=== PATIENT | female | born 1995 | race Two or more races ===

== ENCOUNTER 2025-05-15 21:01 | Emergency (ER) | payer MEDICAID, OTHER ==
[~2025-05-15] VITALS: Ht 162.6 cm; Wt 118.3 kg
--- NOTE | 2025-05-15 21:38 | ED.PDOC ---
MANAGER ENGLISH HPI Comments 29 y/o F presents for sudden and unprovoked onset of abnormal vaginal bleeding, with clot production and associated 6/10 lower abdominal cramping and back pain. Patient is 11x weeks with her first ([id number]). Symptoms are reported to have started 1.5 hours ago at around 1950, this evening. Patient reports, already, going through 2x pads. Clots are small in size. No recent injuries endorsed. She has established outpatient MANAGER ENGLISH care and last ultrasound showed normal on 05/12/25. Only significant history of endometriosis s/p surgical intervention in July 2024. Patient denies any nausea, vomiting, urinary symptoms, lightheadedness, or further associated symptoms. Chief Complaint: Vaginal Bleed Time Seen by MD: 21:20 Information Source: Patient Mode of Arrival: Ambulatory Timing: Hours Review of Systems: REVIEW OF SYSTEMS: No fever, no chills, or fatigue HEENT: No sore throat, no earache, no congestion, no neck pain. Cardiac: No chest pain. No palpitations. Lungs: No shortness of breath, no cough. GI: Lower abdominal pain. No nausea, no vomiting, no diarrhea, no constipation. : Abnormal vaginal bleeding. No dysuria, frequency, or urgency. No hematuria. Musculoskeletal: Low back pain. No joint pain , no joint swelling, no extremity edema. Skin: No rash, no itching. Neuro: No headache, no dizziness, no weakness Vital Signs Vital Signs Date Time Temp Pulse Resp B/P (MAP) Pulse Ox O2 Delivery O2 Flow Rate FiO2 05/15/25 23:14 98.4 67 16 103/43 (63) 100 98.4 Physical Exam General: Awake, alert and oriented. No acute distress. Skin: Skin in warm, dry and intact. Appropriate color for ethnicity. HEENT: The head is normocephalic and atraumatic. Conjunctivae are clear without exudates or hemorrhage. Sclera is non-icteric. EOM are intact. No signs of nystagmus. Eyelids are normal in appearance without swelling or lesions. Oral mucosa is pink and moist Neck: The neck is supple with normal range of motion. No JVD. Cardiac: Heart rate and rhythm are normal. No murmurs, gallops, or rubs are auscultated. Respiratory: No signs of respiratory distress. Lung sounds are clear in all lobes bilaterally without rales, rhonchi, or wheezes. Abdominal: Suprapubic tenderness. No CVA tenderness. Otherwise, remaining a bdomen is soft, non-tender without distention, guarding or rigidity. Bowel sounds are present and normoactive in all four quadrants. Extremities: Upper and lower extremities are atraumatic in appearance without deformity or edema. Neurological: The patient is awake, alert and oriented to person, place, and time with normal speech. Speech is clear. There is no facial asymmetry. Psychiatric: Appropriate mood and affect. Good judgement and insight. 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 Was a procedure done?: No Differential Diagnosis (SHIRT TRIMMER) Vaginal Bleeding: - Complete, - Incomplete, - Inevitable, - Missed, - Threatened, Abruptio Placentae, Blood Loss Anemia, Placenta Previa, UTI X-Ray, Labs, Meds, VS Vital Signs Date Time Temp Pulse Resp B/P (MAP) Pulse Ox O2 Delivery O2 Flow Rate FiO2 05/15/25 23:14 98.4 67 16 103/43 (63) 100 98.4 05/15/25 21:20 97.9 85 18 103/66 (78) 99 97.9 Lab Test 05/15/25 22:55 05/15/25 21:53 Range/Units Beta HCG, Quantitative 32528.3 H 1.5-4.2 mIU/mL Urine Color Colorless Yellow Urine Clarity Turbid H Clear Urine pH 5.5 5.0-9.0 Urine Specific [place] 1.018 1.001-1.035 Urine Protein Trace H Negative Urine Ketones Trace Negative Urine Blood 3+ H Negative /uL Urine Nitrite Negative Negative Urine Bilirubin Negative Negative Urine Urobilinogen Normal Negative mg/dL Urine Leukocyte Esterase 2+ Negative /uL Urine RBC 3055 0 - 4 /hpf Urine Microscopic WBC 11 H 0-5 /HPF Urine Squamous Epithelial Cells Many <5 /hpf Urine Bacteria None seen None Seen /hpf Urine Mucus Few None Seen Urine Glucose Normal Normal mg/dL Urine Test Positive Negative Time of 1ST Reevaluation: 21:50 Reevaluation 1ST: Unchanged Patient Education/Counseling: Need For Follow Up Family Education/Counseling: No Family Present Departure 1 Departure Time of Disposition: 00:11 Impression: Primary Impression: Vaginal bleeding during Additional Impressions: Threatened miscarriage Urinary tract infection during Disposition: 01 HOME / SELF CARE / HOMELESS Condition: Stable Additional Instructions: ED DISCHARGE INSTRUCTIONS Instructions: Please read all instructions provided in this packet carefully. Although you have been discharged from the Emergency Department, this does not mean that you have a "clean bill of health". No definitive diagnosis for your symptoms has been made today. It is possible that you are in the process of developing a serious illness. This is why you must return to the ED without fail if any new or worsening symptoms (especially if your symptoms include chest pain, trouble breathing, abdominal pain, fever, headache, confusion, trouble seeing, or trouble walking) It is also very important that your rolfer within the next 1-3 days to follow up. If you are unable to get an appointment, you continued to have heavy vaginal bleeding and pelvic pain within the next 24 hours return to the ED for re- evaluation. A copy of your ultrasound report is included below Threatened Miscarriage: Care Instructions Overview Some women have light spotting or bleeding during the first 12 weeks of . In some cases this is normal. Light spotting or bleeding can also be a sign of a possible loss of the . This is called a threatened miscarriage. At this point, the doctor may not be able to tell if your vaginal bleeding is normal or is a sign of a miscarriage. In early , things such as stress, exercise, and sex do not cause misca rriage. You may be worried or upset about the possibility of losing your . But do not blame yourself. There is no treatment to stop a miscarriage. If you do have a miscarriage, there was nothing you could have done to prevent it. A miscarriage usually means that the is not developing normally. Follow-up care is a stovall part of your treatment and safety. Be sure to make and go to all appointments, and call your doctor if you are having problems. It's also a good idea to know your test results and keep a list of the medicines you take. How can you care for yourself at home? Take acetaminophen (Tylenol) for cramps. Read and follow all instructions on the label. Do not take two or more pain medicines at the same time unless the doctor told you to. Many pain medicines have acetaminophen, which is Tylenol. Too much acetaminophen (Tylenol) can be harmful. Do not have sex until your doctor says it is okay. Get lots of rest over the next several days. You may do your normal activities if you feel well enough to do them. But do not do any heavy exercise until your doctor says it is okay. Eat a balanced diet that is high in iron and vitamin C. Foods rich in iron include red meat, shellfish, eggs, beans, and leafy green vegetables. Foods high in vitamin C include citrus fruits, tomatoes, and broccoli. Talk to your doctor about whether you need to take iron pills or a multivitamin. Do not drink alcohol or use tobacco or illegal drugs. Do not smoke. If you need help quitting, talk to your doctor about stop-smoking programs and medicines. These can increase your chances of quitting for good. When should you call for help? Call 911 anytime you think you may need emergency care. For example, call if: You passed out (lost consciousness). You feel you cannot stop from hurting yourself or someone else. Where to get help 24 hours a day, 7 days a week If you or someone you know talks about suicide, self-harm, a mental health crisis, a substance use crisis, or any other kind of emotional distress, get help right away. You can: Call the Suicide and Crisis Lifeline at 988. Call 8-543-262-TALK ( ). Text HOME to 062711 to access the Crisis Text Line. Consider saving these numbers in your phone. Go to [facility] for more information or to chat online. Call your doctor now or seek immediate medical care if: You have severe vaginal bleeding. You are dizzy or lightheaded, or you feel like you may faint. You have new or worse pain in your belly or pelvis. You have a fever. You have vaginal discharge that smells bad. Watch closely for changes in your health, and be sure to contact your doctor if: You do not get better as expected. Credits for Threatened Miscarriage: Care Instructions Current as of: March 23, 2024 Author: [employer] Staff Clinical Review Board All [employer] education is reviewed by a team that includes physicians, nurses, advanced practitioners, registered dieticians, and other healthcare professionals. FIRST TRIMESTER OBSTETRICAL ULTRASOUND HISTORY: Vaginal bleeding, 11 weeks . [place] 11/30/2025. Gestational age by [place]RAEL 11 weeks 4 days. COMPARISON: No prior study is available for comparison. TECHNIQUE: Transabdominal imaging of the pelvis. FINDINGS: BIOMETRY: MSD: 5.25 cm, corresponding to 11 weeks 1 days CRL: 4.75 cm, corresponding to 11 weeks 4 days Yolk sac: Identified. Sonographic age: 11 weeks 4 days, corresponding to an [place] of 11/30/2025 Clinical age: 11 weeks 4 days, corresponding to an [place] of 11/30/2025 HEART RATE: 159 bpm UTERUS: The uterus measures 11.3 x 7.4 x 9.2 cm. CERVIX: Not well visualized. ADNEXA: The right ovary is not seen. The left ovary measures approximately 2.9 x 2.2 x 2.3 cm. There is expected flow within the left ovary. OTHER: No free fluid is identified in the cul-de-sac. IMPRESSION: Single live intrauterine gestation with a crown-rump length consistent with a gestational age of 11 weeks and 4 days. No intrauterine abnormality is identified on this transabdominal study. ATED BY: JOEY ABDUL MD DICTATED DATE/TIME: 05/15/25 4124 e-Prescriptions Cephalexin (KEFLEX CAPSULE) 250 Mg Cp 500 MG PO BID for 7 Days, #14 CAP Prov: MELVIN DALAL MD 05/16/25 Comments Patient is felt stable for discharge home to follow up with the primary care provider or rolfer. Critical Care Note Critical Care Time?: No Stability Stability form required: No Heart Score Heart Score: Heart Score Response (Comments) Value History N/A 0 EKG N/A 0 Age N/A 0 Risk Factors N/A 0 Troponin N/A 0 Total 0 I personally scribed for MELVIN DALAL MD ([email or web address]) on 05/15/25 at 21:38. Electronically submitted by Kendell Blanchard ([email or web address]). MELVIN DALAL MD May 15, 2025 21:38
[2025-05-15 21:54] LABS: Urine Bacteria None Seen /hpf (None Seen)
[2025-05-15 22:06] LABS: Urine Blood 3+ /uL (Negative); Urine Clarity Turbid (Clear); Urine Color Colorless (Yellow); Urine Mucus FEW (None Seen); Urine Protein, UAD TRACE (Negative); Urine Specific Gravity 1.018 (1.001-1.035); Urine Squamous Epithelial Cell MANY /hpf (<5); Urine Urobilinogen Normal (Negative); Urine WBC 11 /HPF (0-5); Urine pH 5.5 (5.0-9.0)
[2025-05-15 23:14] VITALS: BP 103/43; PULSE 67; RESP 16; TEMP 98.4; O2SAT 100
--- NOTE | 2025-05-15 23:46 | DVH ---
FIRST TRIMESTER OBSTETRICAL ULTRASOUND HISTORY: Vaginal bleeding, 11 weeks . IS[place] 11/30/2025. Gestational age by ISRAEL 11 weeks 4 days . COMPARISON: No prior study is available for comparison. TECHNIQUE: Transabdominal imaging of the pelvis. FINDINGS: BIOMETRY: MSD: 5.25 cm, corresponding to 11 weeks 1 days CRL: 4.75 cm, corresponding to 11 weeks 4 days Yolk sac: Identified. Sonographic age: 11 weeks 4 days, corresponding to an [place] of 11/30/2025 Clinical age: 11 weeks 4 days, corresponding to an [place] of 11/30/2025 HEART RATE: 159 bpm UTERUS: The uterus measures 11.3 x 7.4 x 9.2 cm. CERVIX: Not well visualized. ADNEXA: The right ovary is not seen. The left ovary measures approximately 2.9 x 2.2 x 2.3 cm. There is expected flow within the left ovary. OTHER: No free fluid is identified in the cul-de-sac. IMPRESSION: Single live intrauterine gestation with a crown-rump length consistent with a gestational age of 11 w eeks and 4 days. No intrauterine abnormality is identified on this transabdominal study.
[2025-05-16] MEDS ORDERED: CEPH250C PO (00:18)
== END 2025-05-16 00:33 | disposition home or self-care (01) ==
LOC: ER 21:01
DX: O20.0 Threatened abortion (principal); O23.41 Unspecified infection of urinary tract in pregnancy, first trimester; N39.0 Urinary tract infection, site not specified; Z3A.11 11 weeks gestation of pregnancy
CPT/HCPCS: 36415; 76801; 81001; 81025; 84702

== ENCOUNTER 2025-07-03 19:56 | Emergency (ER) | payer MEDICAID ==
[~2025-07-03] VITALS: Ht 162.6 cm; Wt 121.8 kg
[~2025-07-03 19:56] MED LIST: CEPH250C PO
--- NOTE | 2025-07-03 20:16 | ECG ---
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
[2025-07-03] MEDS: ALBUTEROL SULF 2.5 MG/0.5ML(0.5%) NEB SOLN NEB ONE (21:16)
[2025-07-03 21:17] LABS: Hematocrit 37.0 % (36.0-46.0); Hemoglobin 12.4 g/dL (12.2-16.2); Mean Corpuscular Hemoglobin 26.4 pg (28.0-32.0); Mean Corpuscular Volume 78.7 fL (80.0-100.0); Nucleated Red Blood Cells % 0.1 %
[2025-07-03 21:18] LABS: Potassium 3.8 mmol/L (3.5-5.1); Sodium 139 mmol/L (136-145)
[2025-07-03 21:19] LABS: Anion Gap 10 (5-15); Carbon Dioxide 20 mmol/L (20-31)
[2025-07-03 21:20] LABS: Calcium 9.2 mg/dL (8.7-10.4)
[2025-07-03 21:22] LABS: Chloride 109 mmol/L (98-107)
[2025-07-03 21:24] LABS: BUN/Creatinine Ratio 11.5 (10.0-20.0); Glucose 104 mg/dL (74-106)
[2025-07-03 21:25] LABS: Blood Urea Nitrogen 7 mg/dL (9-23)
--- NOTE | 2025-07-03 21:35 | DVH ---
LIMITED OB ULTRASOUND > 14 WKS: HISTORY: Pelvic pain while TECHNIQUE: Multiple real-time grayscale images of the gravid uterus with duplex Doppler color flow an d M-mode spectral analysis. FINDINGS: Live intrauterine with fetus in breech position. Gestational age of 18 weeks and 4 days acc ording to BPD, HC, [place], and [place]. [place] of 11/30/2025. Heart rate of 139 beats per minute. MVP of 5 cm. Es timated weight of 244 g. Placenta is posterior. Cervical length is 3.4 cm and is closed. No placenta previa or abruption is n oted. IMPRESSION: 1. Limited evaluation due to body habitus. 2. IUP single live fetus at 18 weeks and 4 days with IS[place] of 11/30/2025. 3. No placenta previa or abruption is noted.
--- NOTE | 2025-07-04 01:04 | ED.PDOC ---
History of Present Illness HPI Comments 29-year-old female who presents for chief complaint of chest pain and generalized tremors. Significant history of asthma. She is 18 weeks . Patient endorses on onset of symptoms at around 1830, this evening, after getting into a verbal altercation with her , experiencing an asthma exacerbation, and passing out. Denies any head trauma. Established care. Denies any shortness of breath, dizziness, lightheadedness, or further associated symptoms at this time. REVIEW OF SYSTEMS: General: No fever, no chills, or fatigue HEENT: No sore throat, no earache, no congestion, no neck pain. Cardiac: chest pain. No palpitations. Lungs: No shortness of breath, no cough. GI: No nausea, no vomiting, no diarrhea, no constipation, no abdominal pain : No dysuria, frequency, or urgency. No hematuria. Musculoskeletal: No joint pain , no joint swelling, no extremity edema. Skin: No rash, no itching. Neuro: Tremors. No headache, no dizziness, no weakness PHYSICAL EXAM: General: Awake, alert and oriented. No acute distress. Skin: Skin in warm, dry and intact. Appropriate color for ethnicity. HEENT: The head is normocephalic and atraumatic. Conjunctivae are clear without exudates or hemorrhage. Sclera is non-icteric. EOM are intact. No signs of nystagmus. Eyelids are normal in appearance without swelling or lesions. Oral mucosa is pink and moist Neck: The neck is supple with normal range of motion. No JVD. Cardiac: Heart rate and rhythm are normal. No murmurs, gallops, or rubs are auscultated. Respiratory: No signs of respiratory distress. Lung sounds are clear in all lobes bilaterally without rales, rhonchi, or wheezes. Abdominal: abdomen. Abdomen is soft, non-tender without distention, guarding or rigidity. Bowel sounds are present and normoactive in all four quadrants. Extremities: Upper and lower extremities are atraumatic in appearance without deformity or edema. Neurological: The patient is awake, alert and oriented to person, place, and time with normal speech. Speech is clear. There is no facial asymmetry. Psychiatric: Appropriate mood and affect. Good judgement and insight. 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 Was a procedure done?: No EKG EKG : Pulse Rate (adult): 89 [place]: Normal Cardiac Rhythm: NSR Block: None Hypertrophy: None ST: Normal Comments No STEMI Differential Dx Considerations may include: Differential diagnoses considered includebut arenot limited to acute Bronchitis, Asthma, COPD, Pneumothorax, PE, CHF, Pulmonary HTN, Anemia, CO Poisoning, Methemoglobinemia, Hyperventilation, Metabolic Acidosis, Pulmonary Edema, Pneumonia, ACS, Pericardial Tamponade, Anxiety, other X-Ray, Labs, Meds, VS Vital Signs Date Time Temp Pulse Resp B/P (MAP) Pulse Ox O2 Delivery O2 Flow Rate FiO2 07/04/25 03:23 89 07/04/25 01:06 97.8 83 14 105/59 (74) 97 97.8 07/03/25 21:18 98 Room Air* 0 21 07/03/25 21:18 16 98 Room Air* 0 21 07/03/25 20:14 98.2 90 16 120/66 97 98.2 07/03/25 20:01 89 Lab Test 07/04/25 00:17 07/03/25 20:14 Range/Units Troponin I High Sensitivity < 3 L < 3 L </=34 ng/L White Blood Count 8.6 4.4-10.8 10^3/uL Red Blood Count 4.70 4.0-5.20 10^6/uL Hemoglobin 12.4 12.2-16.2 g/dL Hematocrit 37.0 36.0-46.0 % Mean Corpuscular Volume 78.7 L 80.0-100.0 fL Mean Corpuscular Hemoglobin 26.4 L 28.0-32.0 pg Mean Corpuscular Hemoglobin Concent 33.5 32.0-36.0 g/dL Red Cell Distribution Width 14.8 H 11.8-14.3 % Platelet Count 195 140-450 10^3/uL Mean Platelet Volume 10.2 6.9-10.8 fL Neutrophils (%) (Auto) 74.5 37.0-80.0 % Lymphocytes (%) (Auto) 17.9 10.0-50.0 % Monocytes (%) (Auto) 6.1 0.0-12.0 % Eosinophils (%) (Auto) 1.2 0.0-7.0 % Basophils (%) (Auto) 0.3 0.0-2.0 % Neutrophils # (Auto) 6.4 1.6-8.6 10 ^3/uL Lymphocytes # (Auto) 1.5 0.4-5.4 10 ^3/uL Monocytes # (Auto) 0.5 0-1.3 10 ^3/uL Eosinophils # (Auto) 0.1 0-0.8 10 ^3/uL Basophils # (Auto) 0 0-0.2 10 ^3/uL Nucleated Red Blood Cells 0.1 % Sodium Level 139 136-145 mmol/L Potassium Level 3.8 3.5-5.1 mmol/L Chloride Level 109 H 98-107 mmol/L Carbon Dioxide Level 20 20-31 mmol/L Anion Gap 10 5-15 Blood Urea Nitrogen 7 L 9-23 mg/dL Creatinine 0.61 0.550-1.02 mg/dL Glomerular Filtration Rate Calc 126 >90 mL/min BUN/Creatinine Ratio 11.5 10.0-20.0 Serum Glucose 104 74-106 mg/dL Calcium Level 9.2 8.7-10.4 mg/dL Beta HCG, Quantitative 62731.0 H 1.5-4.2 mIU/mL Current Medications Medications (Trade) Dose Ordered Sig/Sandra Route Start Time Stop Time Status Last Admin Albuterol (Ventolin Medneb) 2.5 mg ONCE ONCE NEB 07/03/25 21:00 07/03/25 21:01 DC 07/03/25 21:[address] [address] Ph: [phone] DIAGNOSTIC IMAGING Diagnostic Imaging Report : [id number] Signed PATIENT: EMILIA VENTURA ACCT: [id number] UNIT: [id number] : 1995 LOC: ER ROOM / BED: / AGE / SEX: 29 / F ADM STATUS: REG ER SERVICE 53 ORDERING PHYSICIAN: MELVIN DALAL MD PROCEDURE(s): OBUS - OB ULTRASOUND COMP GTR 14 WKS REASON: Pelvic pain while ORDER NUMBER(s): [id number], ACCESSION NUMBER(s): [id number] LIMITED OB ULTRASOUND > 14 WKS: HISTORY: Pelvic pain while TECHNIQUE: Multiple real-time grayscale images of the gravid uterus with duplex Doppler color flow and M-mode spectral analysis. FINDINGS: Live intrauterine with fetus in breech position. Gestational age of 18 weeks and 4 days according to BPD, HC, [place], and [place]. [place] of 11/30/2025. Heart rate of 139 beats per minute. MVP of 5 cm. Estimated weight of 244 g. Placenta is posterior. Cervical length is 3.4 cm and is closed. No placenta previa or abruption is noted. IMPRESSION: 1. Limited evaluation due to body habitus. 2. IUP single live fetus at 18 weeks and 4 days with [place] of 11/30/2025. 3. No placenta previa or abruption is noted. ATED BY: TERESA PIERSON MD DICTATED DATE/TIME: 07/03/252131 SIGNED BY: TERESA PIERSON MD SIGNED DATE/TIME: 07/03/252131 CC: Time of 1ST Reevaluation: 20:50 Reevaluation 1ST: Unchanged Patient Education/Counseling: Need For Follow Up Family Education/Counseling: No Family Present SEPSIS Sepsis Screen Date sepsis recognized/suspect: Jul 03, 2025 Time Sepsis recognized/suspect: 2013 Recent Procedure: No On Antibiotic Therapy: No Respiratory Rate >20: No Heart Rate >90: No Temp<36 C (96.8 F) or >38.3 C: No SBP <90 or MAP <65 mmHG: No New Acute Mental Status Change: No Is the patient on CPAP, BIPAP,: No Physician Orders Urinalysis (07/03/25 20:54) Ob Ultrasound Comp Gtr 14 Wks (07/03/25 20:54) Vital Signs Date Time Temp Pulse Resp B/P (MAP) Pulse Ox O2 Delivery O2 Flow Rate FiO2 07/04/25 03:23 89 07/04/25 01:06 97.8 83 14 105/59 (74) 97 97.8 07/03/25 21:18 98 Room Air* 0 21 07/03/25 21:18 16 98 Room Air* 0 21 07/03/25 20:14 98.2 90 16 120/66 97 98.2 07/03/25 20:01 89 Laboratory Tests Test 07/03/25 20:14 White Blood Count 8.6 10^3/uL (4.4-10.8) Medications Medications Dose Ordered Sig/Sandra Route Start Time Stop Time Status Last Admin Dose Admin Albuterol 2.5 mg ONCE ONCE NEB 07/03/25 21:00 07/03/25 21:01 DC 07/03/25 21:16 Departure 1 Departure Time of Disposition: 01:08 Impression: Primary Impression: Shortness of breath Additional Impression: Abdominal pain during Disposition: 01 HOME / SELF CARE / HOMELESS Condition: Stable Additional Instructions: ED DISCHARGE INSTRUCTIONS Instructions: Please read all instructions provided in this packet carefully. Although you have been discharged from the Emergency Department, this does not mean that you have a "clean bill of health". []No definitive diagnosis for your symptoms has been made today. It is possible that you are in the process of developing a serious illness. This is why you must return to the ED without fail if any new or worsening symptoms (especially if your symptoms include chest pain, trouble breathing, abdominal pain, fever, headache, confusion, trouble seeing, or trouble walking) It is also very important that you see a primary care provider (PCP) within the next 3-5 days to follow up. If you are unable to get an appointment, return to the ED for re-evaluation. A copy of your ultrasound report is included below. SHORTNESS OF BREATH EDUCATION Shortness of breath has many causes. Sometimes conditions such as anxiety can lead to shortness of breath. Some people get mild shortness of breath when they exercise. Trouble breathing also can be a symptom of a serious problem, such as asthma, lung disease, emphysema, heart problems, and pneumonia. If your shortness of breath continues, you may need tests and treatment. Watch for any changes in your breathing and other symptoms. Follow-up care is a stovall part of your treatment and safety. Be sure to make and go to all appointments, and call your doctor if you are having problems. It's also a good idea to know your test results and keep a list of the medicines you take. How can you care for yourself at home? Do not smoke or allow others to smoke around you. If you need help quitting, talk to your doctor about stop-smoking programs and medicines. These can increase your chances of quitting for good. Get plenty of rest and sleep. Take your medicines exactly as prescribed. Call your doctor if you think you are having a problem with your medicine. Find healthy ways to deal with stress. Exercise daily. Get plenty of sleep. Eat regularly and well. When should you call for help? Call 911 anytime you think you may need emergency care. For example, call if: You have severe shortness of breath. You have symptoms of a heart attack. These may include: Chest pain or pressure, or a strange feeling in the chest. Sweating. Shortness of breath. Nausea or vomiting. Pain, pressure, or a strange feeling in the back, neck, jaw, or upper belly or in one or both shoulders or arms. Lightheadedness or sudden weakness. A fast or irregular heartbeat. After you call 911, the flipping machine operator may tell you to chew 1 adult-strength or 2 to 4 low-dose aspirin. Wait for an ambulance. Do not try to drive yourself. Call your doctor now or seek immediate medical care if: Your shortness of breath gets worse or you start to wheeze. Wheezing is a high-pitched sound when you breathe. You wake up at night out of breath or have to prop your head up on several pillows to breathe. You are short of breath after only light activity or while at rest. Watch closely for changes in your health, and be sure to contact your doctor if: You do not get better over the next 1 to 2 days. Credits for Shortness of Breath: Care Instructions Current as of: June 23, 2024 Author: [employer] Staff LIMITED OB ULTRASOUND > 14 WKS: HISTORY: Pelvic pain while TECHNIQUE: Multiple real-time grayscale images of the gravid uterus with duplex Doppler color flow and M-mode spectral analysis. FINDINGS: Live intrauterine with fetus in breech position. Gestational age of 18 weeks and 4 days according to BPD, HC, [place], and [place]. [place] of 11/30/2025. Heart rate of 139 beats per minute. MVP of 5 cm. Estimated weight of 244 g. Placenta is posterior. Cervical length is 3.4 cm and is closed. No placenta previa or abruption is noted. IMPRESSION: 1. Limited evaluation due to body habitus. 2. IUP single live fetus at 18 weeks and 4 days with [place] of 11/30/2025. 3. No placenta previa or abruption is noted. Comments MDM: Patient well-appearing, nontoxic. Vital signs within normal limits. Ultrasound shows normal IUP. Patient's symptoms improved with treatment in the ED. She is felt stable for discharge home. Advised prompt follow-up with PCP, return to the ED with any new, worsening or concerning symptoms. Extensive evaluation was performed in attempt to identify or rule out: (See differential diagnosis section) The following tests were ordered, and results were reviewed by me and discussed with patient: (See diagnostic results section) The following test were independently interpreted by me: EKG I reviewed the following notes from the pt's past medical encounters: May 15, 2025 encounter for vaginal bleeding Decision regarding hospitalization or escalation of hospital level of care: Risks and benefits of admission for further treatment of patient's condition was considered however due to patient's stable condition patient will be discharged to follow up closely or return to care for worsening of condition or inability to follow up. Critical Care Note Critical Care Time?: No Stability Stability form required: No Heart Score Heart Score: Heart Score Response (Comments) Value History N/A 0 EKG N/A 0 Age N/A 0 Risk Factors N/A 0 Troponin N/A 0 Total 0 I personally scribed for MELVIN DALAL MD ([email or web address]) on 8/11/25 at 01:04. Electronically submitted by Kendell Blanchard ([email or web address]). I personally scribed for MELVIN DALAL MD ([email or web address]) on 07/04/25 at 03:23. Electronically submitted by Kendell Blanchard ([email or web address]). MELVIN DALAL MD Jul 04, 2025 01:04
[2025-07-04 01:06] VITALS: BP 105/59; RESP 14; TEMP 97.8; O2SAT 97
[2025-07-04 03:23] VITALS: PULSE 89
== END 2025-07-04 02:32 | disposition home or self-care (01) ==
LOC: ER 19:56
DX: O26.892 Other specified pregnancy related conditions, second trimester (principal); O99.512 Diseases of the respiratory system complicating pregnancy, second trimester; R10.2 Pelvic and perineal pain; J45.901 Unspecified asthma with (acute) exacerbation; Z79.899 Other long term (current) drug therapy; Z3A.18 18 weeks gestation of pregnancy
CPT/HCPCS: 36415; 76805; 80048; 84484; 84702; 85025; 93005; 94640

== ENCOUNTER 2025-08-28 14:22 | Observation (INO) | payer MEDICAID ==
[2025-08-28] MEDS ORDERED: PREN-96 PO (15:37)
--- NOTE | 2025-08-30 08:02 | DVHDS2 ---
Physician Discharge Progress N Final Diagnosis: cramping 26wks Operations or Procedures: Operations or Procedures nst reactive reviwed,sono Condition on Discharge: Good Disposition: Home Discharge Instructions: Diet: Regular Activity: No Restrictions, As Tolerated Medications: na Follow Up Care: Specialist: 2d Discharge Statement: "Patient was advised to return to the ER or call 911 if any headaches, dizziness, shortness of breath, chest pain, abdominal pain, bleeding, fevers, or worsening of medical condition. Patient was counseled about treatment plan, medications, possible side effects, patientverbalized understanding. All questions were answered to the best of my ability. This discharge took greater then 30 minutes in planning, reviewing docum entation, counseling the patient, and discussing with other team members." Visit Coding OBGYN Date of Service: Aug 28, 2025 Billing Provider: MYA SHANNON DO ANTHROPOMETRIST Common Visit Codes: 86010-[id number] OBS CARE (HIGH) ANTHROPOMETRIST Procedure Codes: 16837-45- NON-STRESS TEST MYA SHANNON DO Aug 30, 2025 08:02
== END 2025-08-28 15:53 | disposition home or self-care (01) ==
LOC: LDRP 14:22
PROVIDERS: ADMIT Obstetrics & Gynecology; ATTEND Obstetrics & Gynecology
DX: O26.892 Other specified pregnancy related conditions, second trimester (principal); R10.9 Unspecified abdominal pain; R11.0 Nausea; Z3A.26 26 weeks gestation of pregnancy; Z98.890 Other specified postprocedural states
CPT/HCPCS: 59025; 81002; 94760; G0378